=== PATIENT | male | born 1995 | race Caucasian/White ===

== ENCOUNTER → 2017-04-26 | Outpatient (CLI) | payer OTHER ==
[~2017-04-26] MED LIST: GADAVIST IV PRN
--- NOTE | 2017-04-26 13:05 | DIAGNOSTIC IMAGING REPORT ---
FLUOROSCOPICALLY GUIDED LEFT ELBOW ARTHROGRAM PRIOR TO MRI CLINICAL HISTORY: Left elbow pain. COMPARISON STUDY: None. FLUOROSCOPY TIME: 32 seconds. PROCEDURE: The procedure, risks and benefits were discussed with the patient and informed written consent was obtained. The procedure was performed by Dr. Shaver following a timeout. Skin overlying the left elbow was prepped and draped in sterile fashion and local anesthesia was achieved with 1% lidocaine. Under intermittent fluoroscopic guidance, a 1 and 1/2 inch, 22-gauge needle was directed into the left elbow joint. Positioning within the joint space was confirmed with injection of a small amount of contrast. At this time, 5 cc of a mixture of 0.1 cc of gadolinium, 10 cc of normal saline and 10 cc of Optiray 320 was injected into the left elbow joint. The needle was removed. The patient tolerated the procedure well and no immediate complications were evident. IMPRESSION: Fluoroscopically guided left elbow arthrogram prior to MRI. Electronically signed by: Dmitri Shaver M.D. 04/26/2017 1:04 PM Dictated Date/Time: 04/26/2017 1:02 PM
--- NOTE | 2017-04-26 13:48 | DIAGNOSTIC IMAGING REPORT ---
LEFT UPPER EXTREMITY JOINT W/ CLINICAL HISTORY: 22 years-old Male presenting with LEFT ELBOW PAIN. TECHNIQUE: Multisequence, multiplanar MR imaging of the left elbow was performed after intra-articular injection of contrast. IV contrast: None. COMPARISON: None. FINDINGS: Localizer images: Unremarkable. No bony edema. Intra-articular fluid consistent with joint injection. Fluid is limited to the joint space. No subluxation or acute fracture. Articular cartilage preserved. Medial collateral ligament complex intact. Normal appearance of the common flexor tendon. Radial collateral ligament intact. However, proximal to mid fibers lateral ulnar collateral ligament may be discontinuous versus a prominent posterolateral plica. Annular ligament grossly intact. Common extensor tendon intact. Brachialis tendon intact. Distal biceps tendon intact. Triceps tendon intact. Normal muscle bulk. Normal signal intensity of the muscles. IMPRESSION: 1. Concern for tear of the lateral ulnar collateral ligament versus prominent posterolateral plica. No other abnormality. Electronically signed by: Reid Barrios M.D. 04/26/2017 1:47 PM Dictated Date/Time: 04/26/2017 1:16 PM
== END | disposition home or self-care (01) ==
LOC: C.MRIBC 11:53
PROVIDERS: ATTEND Family Medicine
DX: M25.522 Pain in left elbow (principal)